=== PATIENT | female | born 1990 | race Caucasian/White ===

== ENCOUNTER 2020-05-31 17:57 | Emergency (ER) | payer SELFPAY ==
[2020-05-31 18:01] VITALS: BP 129/91; PULSE 99; RESP 16; TEMP 36.7; O2SAT 100
--- NOTE | 2020-05-31 18:28 | ED_ITS ---
HPI - Chest Pain General Chief Complaint: Chest Pain Stated Complaint: pain under ribs Time Seen by Provider: 05/31/20 18:28 Source: patient Mode of arrival: Ambulatory Limitations: no limitations History of Present Illness HPI narrative: 30F nonsmoker without significant medical history presents with a friend and a chief complaint of a sharp and stabbing pain on her left lowest rib over the course of the day. She states it is very sharp and reproducible to palpation and deep breaths. She denies any recent injury or obvious overuse. She has had some sneezing but denies any significant coughs and has no shortness of breath. She denies any abdominal pain, nausea or vomiting. She denies any dysuria, frequency or urgency. She has no vaginal bleeding or discharge. She has not taken any Tylenol or Motrin prior to her arrival. MD complaint: chest pain Onset (ago): hour(s) Duration: constant Pain location: left chest (12th rib) Severity: moderate Quality: sharp Pain radiation: none Relieving factors: rest Exacerbating factors: inspiration and palpation Treatments prior to arrival chest pain: none Related Data Allergies Allergy/AdvReac Type Severity Reaction Status Date / Time No Known Drug Allergies Allergy Verified 05/31/20 18:05 Review of Systems Constitutional Constitutional: Denies chills, Denies fatigue, Denies fever(s), Denies frequent falls, Denies lethargy and Denies weakness Eyes Eyes: Denies change in vision, Denies eye discharge, Denies irritation and Denies loss of vision ENT Ears, Nose, Mouth, and Throat: Denies change in voice, Denies dizziness, Denies neck pain, Denies sore throat and Denies throat swelling Cardiovascular Cardiovascular: Reports chest pain, Denies irregular heart rhythm, Denies lightheadedness, Denies palpitations, Denies dyspnea, Denies dyspnea on exertion and Denies orthopnea Respiratory Respiratory: Denies cough, Denies dyspnea, Denies dyspnea on exertion and Denies wheezing Gastrointestinal Gastrointestinal: Denies abdominal pain, Denies change in bowel habits, Denies diarrhea, Denies nausea and Denies vomiting Musculoskeletal Musculoskeletal: Denies neck pain and Denies numbness Integumentary/Breasts Skin/Breast: Denies pruritus, Denies erythema, Denies rash and Denies wounds Neurologic Neurologic: Denies behavioral changes, Denies confusion, Denies dizziness, Denies frequent falls, Denies loss of vision, Denies numbness and Denies weakness Psychiatric Psychiatric: Denies anxiety, Denies behavioral changes, Denies confusion, Denies depression, Denies homicidal ideation and Denies suicidal ideation Endocrine Endocrine: Denies fatigue, Denies flushing and Denies palpitations Hematologic/Lymphatic Hematologic/Lymphatic: Denies easy bruising Allergic/Immunologic Allergic/Immunologic: Denies urticaria, Denies throat swelling and Denies wheezing Patient History Social History Smoking Status: Never smoker Smoking Status: Never smoker alcohol intake frequency: 0-2 drinks per day Substance Use Type: does not use Exam Narrative Exam Narrative: GENERAL: [30] year old patient appears stated age. Well- nourished, well-developed patient, in mild distress. HEAD: Atraumatic. Normocephalic. EYES: Pupils equal round and reactive. Extraocular motions intact. No scleral icterus. No injection or drainage. ENT: Nose without bleeding, purulent drainage. Throat without erythema, tonsillar hypertrophy or exudate. Airway patent. NECK: Trachea midline. Non tender CARDIOVASCULAR: Regular rate and rhythm without murmurs, gallops, or rubs. Sharp reproduceable pain on anterior edge of left 12th rib. No swelling or erythema. No crepitance. NO abdominal pain RESPIRATORY: Clear to auscultation. Breath sounds equal bilaterally. No wheezes, rales, or rhonchi. GASTROINTESTINAL: Abdomen soft, non-tender, nondistended. EXTREMITIES: No edema or joint tenderness. BACK: Nontender without deformity or crepitance. No flank tenderness. NEURO: AOx3. SKIN: No rash or erythema of visible areas Initial Vital Signs Initial Vital Signs: Vital Signs Temperature 98.0 F 05/31/20 18:01 Pulse Rate 99 H 05/31/20 18:01 Respiratory Rate 16 05/31/20 18:01 Blood Pressure 129/91 H 05/31/20 18:01 Pulse Oximetry 100 05/31/20 18:01 Course Orders Ordered: ED Orders 05/31/20 18:54 Complete Blood Count AUTO DIFF Stat Comprehensive Metabolic Panel Stat Lipase Stat Partial Thromboplastin Time Stat Prothrombin Time INR Stat 05/31/20 19:06 EKG-12 Lead Stat 05/31/20 19:09 XR acute abdomen series Stat Discontinued Medications Sodium Chloride (Normal Saline 0.9%) 1,000 mls @ 1,000 mls/hr IV BOLUS ONE Stop: 05/31/20 20:18 Last Infusion: 05/31/20 20:31 Dose: 0 mls/hr Documented by: Admin: 05/31/20 19:26 Dose: 1,000 mls/hr Documented by: TROY Ketorolac Tromethamine (Ketorolac 60 Mg/2 Ml Vial) 15 mg IV NOW ONE Stop: 05/31/20 19:10 Last Admin: 05/31/20 19:25 Dose: 15 mg Documented by: TROY Lidocaine (Lidocaine Patch 1 Each Adh..Patch) 1 each TOP NOW ONE Stop: 05/31/20 20:27 Last Admin: 05/31/20 20:28 Dose: 1 each Documented by: TROY Vital Signs Vital signs: Vital Signs - 8 hr 05/31/20 18:01 05/31/20 20:45 Temperature 98.0 F Pulse Rate 99 H 71 Respiratory Rate 16 16 Blood Pressure 129/91 H 119/82 Pulse Oximetry 100 99 MDM - Chest Pain Lab Data Result diagrams: 05/31/20 18:54 05/31/20 18:54 Labs: Lab Results 05/31/20 05/31/20 05/31/20 Range/Units 18:54 18:54 18:54 WBC 6.8 (4.5-11.0) X10^3/uL RBC 4.63 (4.0-5.2) X10^6/uL Hgb 15.8 (12.0-16.0) g/dL Hct 45.8 (36-46) % MCV 98.9 (80-100) fL MCH 34.0 (26-34) PG MCHC 34.4 (30-36) % RDW 12.1 (11.6-14.8) % Plt Count 298 (150-400) X10^3/uL Neut % (Auto) 67.5 (50-75) % Lymph % (Auto) 23.5 L (25-40) % [place] % (Auto) 8.1 (3-14) % Eos % (Auto) 0.3 L (2-4) % Baso % (Auto) 0.6 (0-2) % Neut # (Auto) 4600 (0291-5924) /uL Lymph # (Auto) 1600 (9300-0302) /uL [place] # (Auto) 500 (0-900) /uL Eos # (Auto) 0 (0-450) /uL Baso # (Auto) 0 (0-100) /uL PT 10.8 (10.1-12.7) SECONDS INR 0.9 (0.9-1.3) APTT 31 (26.4-36.2) SECONDS Sodium 136 L (137-145) mmol/L Potassium 3.8 (3.4-5.1) mmol/L Chloride 104 (98-107) mmol/L Carbon Dioxide 26 (22-32) mmol/L BUN 12 (7-17) mg/dL Creatinine 0.61 (0.52-1.04) mg/dL Estimated GFR > 60.0 (>60) mL/min BUN/Creatinine Ratio 19.7 (6-22) Glucose 101 H (70-100) mg/dL Calcium 9.4 (8.4-10.2) mg/dL Total Bilirubin 0.6 (0.2-1.3) mg/dL AST 30 (14-36) IU/L ALT 30 (<35) IU/L Alkaline Phosphatase 71 (38-126) U/L Total Protein 7.9 (6.3-8.2) g/dL Albumin 4.6 (3.5-5.0) g/dL Globulin 3.3 (1.7-4.1) g/dL Albumin/Globulin Ratio 1.4 (1.0-2.8) Lipase 137 (23-300) U/L Point of Care Testing Test Results Negative Urine Dip Bedside Urine Glucose Negative Bedside Urine Bilirubin - Negative Bedside Urine Ketone - Negative Urine Specific [place] 1.005 Bedside Urine Occult Blood - Negative Bedside Urine pH 6.0 Bedside Urine Protein - Negative Bedside Urine Urobilinogen - Negative Bedside Urine Nitrite - Negative Bedside Urine Leukocytes - Negative Esterase Imaging Data Chest x-ray: Radiologist's Impression: [address] [id number] ReportSigned Patient: Tammie Cedillo GMR#: [id number]: 1990Acct:[id number]/Sex: 30 / FDate of Service: 05/31/20Loc: EDAccession Number: [id number] Procedure: XR acute abdomen series Ordering Provider: Baljit Kelly D.O. PROCEDURE: XR ACUTE ABDOMEN SERIES INDICATIONS: Abdominal pain TECHNIQUE: One view chest and two views of the abdomen were acquired. COMPARISON: None. FINDINGS: Surgical changes and devices: None. Chest: Lungs are clear. Heart size is normal. No pleural effusions. No pneumoperitoneum. Abdomen: Bowel gas pattern is normal. No suspicious calcifications. Visualized solid organ contours appear normal. Bones: No suspicious bony lesions. IMPRESSION: Chest and abdomen without acute radiographic abnormalities. Dictated by: Parrish Mccallum M.D. on 05/31/2020 at 20:05 Approved by: Parrish Mccallum M.D. on 05/31/2020 at 20:07 [facility] Narrative Medical decision making narrative: Multiple etiologies for patient's symptoms considered including: [Cardiac ischemia versus pulmonary embolism versus chest wall pain versus UTI versus other] Patient's symptoms improved over duration of stay with above-stated therapies. Findings and discharge diagnosis discussed with patient/family followed by verbalization of understanding Return precautions discussed with patient/family whom verbalize understanding. Discharge Plan Departure Patient Disposition: Home Clinical Impression: Acute chest wall pain Instructions: DI for Atypical Chest Pain Activity Restrictions/Additional Instructions: *You have been diagnosed with [acute chest wall pain] *What to do: *Take medications as directed: Tylenol, Motrin, [id number] lidocaine patches *Follow up with your primary care provider in 2-3 days, call for an appointment. Let them know you were seen in the Emergency Department and that we ask that you be seen in follow up *Return to ER if you should have any new, worsening or concerning symptoms, such as [fever, chills, nausea, vomiting or other bothersome symptoms] Referrals: [facility] [Outside]
--- NOTE | 2020-05-31 19:09 | DI.RAD.S_ITS ---
PROCEDURE: XR ACUTE ABDOMEN SERIES INDICATIONS: Abdominal pain TECHNIQUE: One view chest and two views of the abdomen were acquired. COMPARISON: None. FINDINGS: Surgical changes and devices: None. Chest: Lungs are clear. Heart size is normal. No pleural effusions. No pneumoperitoneum. Abdomen: Bowel gas pattern is normal. No suspicious calcifications. Visualized solid organ contours appear normal. Bones: No suspicious bony lesions. IMPRESSION: Chest and abdomen without acute radiographic abnormalities. Dictated by: Parrish Mccallum M.D. on 05/31/2020 at 20:05 Approved by: Parrish Mccallum M.D. on 05/31/2020 at 20:07
[2020-05-31 19:12] LABS: Basophils Percent Auto 0.6 % (0-2); Eosinophils Percent Auto 0.3 % (2-4); Hematocrit 45.8 % (36-46); Hemoglobin 15.8 g/dL (12.0-16.0); Lymphocytes Percent Auto 23.5 % (25-40); Mean Corpuscular HGB Conc 34.4 % (30-36); Mean Corpuscular Volume 98.9 fL (80-100); Monocytes Percent Auto 8.1 % (3-14); Neutrophils Percent Auto 67.5 % (50-75); Platelet Count 298 X10^3/uL (150-400); Red Blood Cell Count 4.63 X10^6/uL (4.0-5.2); Red Cell Distribution Width 12.1 % (11.6-14.8); White Blood Cell Count 6.8 X10^3/uL (4.5-11.0)
[2020-05-31 19:13] LABS: Add Manual Diff / Slide Review NO; Basophils Absolute Auto 0 /uL (0-100); Eosinophils Absolute Auto 0 /uL (0-450); INR 0.9 (0.9-1.3); Lymphocytes Absolute Auto 1600 /uL (1100-4500); Monocytes Absolute Auto 500 /uL (0-900); Neutrophils Absolute Auto 4600 /uL (1500-7000); Prothrombin Time 10.8 SECONDS (10.1-12.7)
[2020-05-31 19:15] LABS: PTT Partial Thromboplastin Tim 31 SECONDS (26.4-36.2)
[2020-05-31 19:21] LABS: Alanine Aminotransferase 30 IU/L (<35); Albumin 4.6 g/dL (3.5-5.0); Albumin Globulin Ratio 1.4 (1.0-2.8); Alkaline Phosphatase 71 U/L (38-126); Aspartate Aminotransferase 30 IU/L (14-36); BUN Creatinine Ratio 19.7 (6-22); Bilirubin Total 0.6 mg/dL (0.2-1.3); Blood Urea Nitrogen 12 mg/dL (7-17); Calcium 9.4 mg/dL (8.4-10.2); Carbon Dioxide 26 mmol/L (22-32); Chloride 104 mmol/L (98-107); Estimated Glomerular Filt Rate > 60.0 mL/min (>60); Globulin 3.3 g/dL (1.7-4.1); Glucose 101 mg/dL (70-100); HEMOLYSIS 19 (0-50); Lipase 137 U/L (23-300); Potassium 3.8 mmol/L (3.4-5.1); Sodium 136 mmol/L (137-145); Total Protein 7.9 g/dL (6.3-8.2)
[2020-05-31] MEDS: KETOROLAC 60 MG/2 ML VIAL 15 MG IV (19:25)
[2020-05-31] MEDS: SODIUM CHLORIDE 0.9% 1,000 ML 1000 ML IV (19:26)
--- NOTE | 2020-05-31 19:44 | PC.NURSE ---
Patient denies chest pain, states pain is located on left side ribs below breast.
[2020-05-31] MEDS: LIDOCAINE PATCH 1 EACH ADH..PATCH TOP (20:28)
[2020-05-31 20:45] VITALS: BP 119/82; PULSE 71; RESP 16; O2SAT 99
== END 2020-05-31 21:03 | disposition home or self-care (01) ==
PROVIDERS: Emergency Provider Emergency Medicine
DX: R07.89 Other chest pain (principal); R07.81 Pleurodynia; R10.9 Unspecified abdominal pain
CPT/HCPCS: 36415; 74022; 80053; 81003; 81025; 83690; 85025; 85610; 85730; 93005; 93010; 96361; 96374; 99283; 99284; J1885